=== PATIENT | male | born 1960 | race Caucasian/White ===

== ENCOUNTER 2019-03-11 22:32 | Inpatient (IN) | payer OTHER ==
[2019-03-11 22:57] LABS: ADD MAN DIFF? NO
[2019-03-11 22:59] LABS: WHITE BLOOD COUNT 11.7 10^3/ul (4.8-10.8)
[2019-03-11 22:59] LABS: BASOPHILS % 0.3 % (0.0-2.0); EOSINOPHILS # 0.2 10^3/ul (0.0-0.5); EOSINOPHILS % 1.3 % (0.0-7.0); HEMATOCRIT 44.5 % (42.0-52.0); HEMOGLOBIN 15.1 g/dl (14.0-18.0); LYMPHOCYTES # 2.9 10^3/ul (0.8-2.9); MEAN CORPUSCULAR HEMOGLOBIN 32.9 pg (29.0-33.0); MEAN CORPUSCULAR HGB CONC 33.9 g/dl (32.0-37.0); MEAN CORPUSCULAR VOLUME 96.9 fl (82.0-101.0); MONOCYTE # 0.8 10^3/ul (0.3-0.9); MONOCYTES % 7.1 % (0.0-11.0); NEUTROPHIL # 7.6 10^3/ul (1.6-7.5); NEUTROPHILS % 64.8 % (39.0-77.0); PLATELET COUNT 230 10^3/UL (140-415); RED BLOOD COUNT 4.59 10^6/ul (4.70-6.10); RED CELL DISTRIBUTION WIDTH 13.3 % (11.5-14.5)
[2019-03-11 23:15] LABS: ANION GAP 11 (5-13); BLOOD UREA NITROGEN 19 mg/dl (7-20); CALCIUM 9.8 mg/dl (8.4-10.2); CARBON DIOXIDE 28 mmol/L (21-31); CHLORIDE 100 mmol/L (97-110); CREATININE 1.11 mg/dl (0.61-1.24); Estimated GFR > 60 mL/min (>60); GLUCOSE 144 mg/dl (70-220); POTASSIUM 4.1 mmol/L (3.5-5.1); SODIUM 139 mmol/L (135-144)
[2019-03-11 23:27] LABS: TROPONIN-I < 0.012 ng/ml (0.000-0.120)
[2019-03-11] MEDS ORDERED: ALTEPLASE 100 MG INJ IV* (23:30)
[2019-03-11] MEDS ORDERED: SOD CHLORIDE 0.9% 50 ML IV (23:30)
[2019-03-11] MEDS ORDERED: ALTEPLASE (tPA) 1 MG/ML BOLUS SYG IV* ×2 (23:30→23:45)
[2019-03-11] MEDS: SOD CHLORIDE 0.9% 100 ML (23:42)
[2019-03-11] MEDS: IOHEXOL 300MG/ML 150 ML BTL (23:42)
[2019-03-11] MEDS ORDERED: ALTEPLASE IV (23:45)
[2019-03-11 23:46] LABS: CHOLESTEROL 164 mg/dl (100-200)
[2019-03-11 23:46] LABS: CHOL/HDL RATIO 3.5 RATIO; CREATINE KINASE 59 IU/L (23-200); HDL CHOLESTEROL 46 mg/dl (30-78); LDL CHOLESTEROL,CALCULATED 74 mg/dl; PROTIME 13.3 Sec (11.9-14.9); TRIGLYCERIDES 221 mg/dl (0-149)
[2019-03-11 23:47] LABS: PARTIAL THROMBOPLASTIN TIME 29.3 Sec (23.0-35.0)
[2019-03-11 23:48] LABS: ETHANOL < 10.0 mg/dl (0-0)
[2019-03-11] MEDS: ONDANSETRON 4 MG INJ IV (23:49)
[2019-03-11 23:58] LABS: CK INDEX 1.3; CK-MB 0.75 ng/ml (0.0-2.4); TROPONIN-I < 0.012 ng/ml (0.000-0.120)
[2019-03-11] MEDS: ALTEPLASE (tPA) 1 MG/ML BOLUS SYG IV* (23:58)
[2019-03-11 23:59] LABS: HEMOGLOBIN A1C 6.4 % (0-5.9)
[2019-03-11] MEDS: ALTEPLASE 100 MG INJ IV* (23:59)
[2019-03-12] MEDS: SOD CHLORIDE 0.9% 50 ML IV (00:50)
[2019-03-12] MEDS: ONDANSETRON 4 MG INJ IV ×2 (01:37→08:03)
[2019-03-12] MEDS: PANTOPRAZOLE 40 MG INJ IV (01:40)
[2019-03-12] MEDS ORDERED: MAGNESIUM HYDROXIDE 30ML CUP PO (03:30)
[2019-03-12] MEDS ORDERED: ONDANSETRON 4 MG TAB PO (03:30)
[2019-03-12] MEDS ORDERED: HYDROCODONE/APAP (5/325) TAB PO (03:30)
[2019-03-12] MEDS ORDERED: NACL 0.9% 3 ML SYG IV (03:30)
[2019-03-12 06:16] LABS: CREATINE KINASE 37 IU/L (23-200)
[2019-03-12 06:19] LABS: CK INDEX 1.6; TROPONIN-I < 0.012 ng/ml (0.000-0.120)
[2019-03-12] MEDS: ASPIRIN (EC) 81 MG TAB PO (08:07)
[2019-03-12] MEDS: FAMOTIDINE 20 MG TAB PO ×2 (08:39→19:52)
[2019-03-12] MEDS: GABAPENTIN 300 MG CAP PO ×2 (08:39→21:19)
[2019-03-12] MEDS: HYDROCHLOROTHIAZIDE 25 MG TAB PO (08:39)
[2019-03-12] MEDS: METOPROLOL (XL) 25 MG TAB PO (08:40)
[2019-03-12] MEDS: DOCUSATE SODIUM 100 MG CAP PO (08:40)
[2019-03-12] MEDS: LISINOPRIL 10 MG TAB PO (08:40)
[2019-03-12] MEDS: RANOLAZINE (SR) 500 MG TAB PO ×2 (10:44→21:18)
[2019-03-12 11:21] LABS: CREATINE KINASE 36 IU/L (23-200)
[2019-03-12] MEDS ORDERED: METOCLOPRAMIDE 10 MG INJ IV (11:30)
[2019-03-12 11:34] LABS: CK INDEX 1.8; CK-MB 0.63 ng/ml (0.0-2.4); TROPONIN-I < 0.012 ng/ml (0.000-0.120)
[2019-03-12 13:57] LABS: ADD UMIC NO; UR ASCORBIC ACID NEGATIVE (NEGATIVE); UR BILIRUBIN (Dip) NEGATIVE (NEGATIVE); UR BLOOD (Dip) NEGATIVE (NEGATIVE); UR CLARITY CLEAR (CLEAR); UR COLOR AMBER (YELLOW); UR GLUCOSE (Dip) NEGATIVE (NEGATIVE); UR KETONES (Dip) NEGATIVE (NEGATIVE); UR LEUKOCYTE ESTERASE (Dip) NEGATIVE Leu/ul (NEGATIVE); UR NITRITE (Dip) NEGATIVE (NEGATIVE); UR SPECIFIC GRAVITY (Dip) > 1.060 (1.003-1.030); UR TOTAL PROTEIN (Dip) NEGATIVE (NEGATIVE); UR UROBILINOGEN (Dip) NEGATIVE (NEGATIVE)
[2019-03-12 14:26] LABS: AMPHETAMINE/METHAMPHETAMINE Negative (NEGATIVE); BARBITURATES Negative (NEGATIVE); BENZODIAZEPINES Negative (NEGATIVE); CANNABINOIDS Negative (NEGATIVE); COCAINE Negative (NEGATIVE); OPIATES Negative (NEGATIVE)
[2019-03-12] MEDS ORDERED: LATANOPROST 0.005% 2.5 ML OPH BOTH EYES (20:00)
[2019-03-12] MEDS ORDERED: ATORVASTATIN 20 MG TAB PO (21:00)
[2019-03-12] MEDS: OLOPATADINE 0.1% 5 ML OPH BOTH EYES (21:18)
[2019-03-12] MEDS: ATORVASTATIN 40 MG TAB PO (21:19)
[2019-03-13 05:35] LABS: ADD MAN DIFF? NO
[2019-03-13 05:39] LABS: BASOPHILS % 0.3 % (0.0-2.0); EOSINOPHILS # 0.2 10^3/ul (0.0-0.5); EOSINOPHILS % 1.5 % (0.0-7.0); HEMATOCRIT 41.4 % (42.0-52.0); HEMOGLOBIN 13.8 g/dl (14.0-18.0); LYMPHOCYTES # 2.5 10^3/ul (0.8-2.9); LYMPHOCYTES % 24.2 % (15.0-51.0); MEAN CORPUSCULAR HEMOGLOBIN 32.6 pg (29.0-33.0); MEAN CORPUSCULAR HGB CONC 33.3 g/dl (32.0-37.0); MEAN CORPUSCULAR VOLUME 97.9 fl (82.0-101.0); MONOCYTE # 0.9 10^3/ul (0.3-0.9); MONOCYTES % 8.5 % (0.0-11.0); NEUTROPHIL # 6.7 10^3/ul (1.6-7.5); NEUTROPHILS % 64.3 % (39.0-77.0); PLATELET COUNT 194 10^3/UL (140-415); RED BLOOD COUNT 4.23 10^6/ul (4.70-6.10); RED CELL DISTRIBUTION WIDTH 14.1 % (11.5-14.5)
[2019-03-13 05:39] LABS: WHITE BLOOD COUNT 10.4 10^3/ul (4.8-10.8)
[2019-03-13 06:05] LABS: ANION GAP 9 (5-13); BLOOD UREA NITROGEN 21 mg/dl (7-20); CARBON DIOXIDE 30 mmol/L (21-31); CHLORIDE 98 mmol/L (97-110); CREATININE 0.98 mg/dl (0.61-1.24); Estimated GFR > 60 mL/min (>60); GLUCOSE 134 mg/dl (70-220); SODIUM 137 mmol/L (135-144)
[2019-03-13 06:28] LABS: ERYTHROCYTE SEDIMENTATION RATE 9 mm/Hr (0-20)
[2019-03-13] MEDS: HYDROCHLOROTHIAZIDE 25 MG TAB PO (08:11)
[2019-03-13] MEDS: GABAPENTIN 300 MG CAP PO ×2 (08:11→21:00)
[2019-03-13] MEDS: OLOPATADINE 0.1% 5 ML OPH BOTH EYES ×2 (08:11→21:00)
[2019-03-13] MEDS: FAMOTIDINE 20 MG TAB PO ×2 (08:11→21:00)
[2019-03-13] MEDS: METOPROLOL (XL) 25 MG TAB PO (08:12)
[2019-03-13] MEDS: LISINOPRIL 10 MG TAB PO (08:13)
[2019-03-13] MEDS: RANOLAZINE (SR) 500 MG TAB PO ×2 (08:14→21:00)
[2019-03-13] MEDS: ACETAMINOPHEN 325 MG TAB PO (09:30)
[2019-03-13] MEDS: CLOPIDOGREL 75 MG TAB PO (13:13)
[2019-03-13 15:04] LABS: RAPID PLASMA REAGIN NONREACTIVE (NR)
[2019-03-13] MEDS: DEXAMETHASONE 10 MG/ML 1 ML INJ IV (19:14)
[2019-03-13] MEDS: ATORVASTATIN 40 MG TAB PO (21:00)
[2019-03-14] MEDS ORDERED: DEXAMETHASONE 10 MG/ML 1 ML INJ IV
== END 2019-03-13 21:25 | disposition home health service (06) | DRG 62 ==
LOC: E/R 22:32 → ICU 03-12 03:22 → 2NE 03-13 12:15
PROC: 3E03317 Introduction of Other Thrombolytic into Peripheral Vein, Percutaneous Approach (ICD-10-PCS; principal; 2019-03-12)
DX: I63.9 Cerebral infarction, unspecified (principal); G81.94 Hemiplegia, unspecified affecting left nondominant side; I25.10 Atherosclerotic heart disease of native coronary artery without angina pectoris; Z95.5 Presence of coronary angioplasty implant and graft; Z79.02 Long term (current) use of antithrombotics/antiplatelets; Z79.82 Long term (current) use of aspirin; E78.5 Hyperlipidemia, unspecified; I10 Essential (primary) hypertension; R20.2 Paresthesia of skin; M54.17 Radiculopathy, lumbosacral region; M54.12 Radiculopathy, cervical region
CPT/HCPCS: 36415; 70450; 70496; 70498; 70551; 71045; 71275; 72141; 72148; 80048; 80061; 80307; 81003; 82550; 82553; 83036; 84443; 84484; 85025; 85610; 85651; 85730; 86592; 92610; 93005; 93306; 93880; 96374; 96375; 97162; 99291-25